=== PATIENT | male | born 1995 | race Caucasian/White ===

== ENCOUNTER 2017-02-16 23:54 | Emergency (ER) | payer OTHER ==
[2017-02-17 00:04] VITALS: BP 124/101
[2017-02-17] MEDS ORDERED: Aspirin 81 MG Tab.Chew PO ONE (00:28)
--- NOTE | 2017-02-17 00:47 | EDM.PDOC ---
ED HPI GENERAL MEDICAL PROBLEM - General Chief Complaint: Chest Pain Stated Complaint: CHEST PAIN Time Seen by Provider: 02/17/17 00:18 Source of Information: Reports: Patient History Limitations: Reports: No Limitations - History of Present Illness INITIAL COMMENTS - FREE TEXT/NARRATIVE: The patient presents with left sided chest pain that started this morning at 7am. The pain is described as pressure. It radiated to the right chest earlier. He has some shortness of breath with it. The pain is made worse by taking a deep breath. He denies fever, chills, cough, abdominal pain, nausea or vomiting. This has never happened before. He does not smoke or do drugs. Onset: Gradual Duration: Hour(s): (7am) Location: Reports: Chest Quality: Reports: Pressure Severity: Moderate Improves with: Reports: None Worsens with: Reports: Breathing Associated Symptoms: Reports: Chest Pain, Shortness of Breath. Denies: Confusion, Cough, Diaphoresis, Fever/Chills, Nausea/Vomiting Left Chest Pain Score (Numeric/FACES): 8 - Related Data Allergies Allergy/AdvReac Type Severity Reaction Status Date / Time No Known Allergies Allergy Verified 02/16/17 23:59 Home Meds: Home Meds Naproxen Sodium [Midol] 440 mg PO ONCALL PRN 02/17/17 [History] Past Medical History - Past Health History Medical/Surgical History: Denies Medical/Surgical History HEENT History: Reports: None Cardiovascular History: Reports: None Respiratory History: Reports: None Gastrointestinal History: Reports: None Genitourinary History: Reports: None Musculoskeletal History: Reports: None Neurological History: Reports: None Psychiatric History: Reports: None Endocrine/Metabolic History: Reports: Obesity/BMI 30+ Social & Family History - Family History Family Medical History: Noncontributory - Tobacco Use Smoking Status *Q: Never Smoker Second Hand Smoke Exposure: Yes - Recreational Drug Use Recreational Drug Use: No - Living Situation & Occupation Living situation: Reports: Single ED ROS GENERAL - Review of Systems Review Of Systems: See Below Constitutional: Reports: No Symptoms HEENT: Reports: No Symptoms Respiratory: Reports: Shortness of Breath Cardiovascular: Reports: Chest Pain Endocrine: Reports: No Symptoms GI/Abdominal: Reports: No Symptoms : Reports: No Symptoms Musculoskeletal: Reports: No Symptoms Skin: Reports: No Symptoms Neurological: Reports: No Symptoms ED EXAM, GENERAL - Physical Exam Exam: See Below Exam Limited By: No Limitations General Appearance: Alert, No Apparent Distress Ears: Normal External Exam Nose: Normal Inspection Head: Atraumatic, Normocephalic Neck: Normal Inspection Respiratory/Chest: No Respiratory Distress, Lungs Clear, Normal Breath Sounds Cardiovascular: Regular Rate, Rhythm, No Edema, No Murmur Peripheral Pulses: 0: Popliteal (R) GI/Abdominal: Soft, Non-Tender, No Organomegaly, No Mass Back Exam: Normal Inspection Extremities: Normal Inspection EKG INTERPRETATION EKG Date: 02/17/17 Time: 00:40 Rhythm: NSR Rate (Beats/Min): 77 [place]: Normal P-Wave: Present QRS: Normal ST-T: Normal QT: Normal Course - Vital Signs Last Recorded V/S: Last Vital Signs Temp 96.5 F 02/17/17 00:01 Pulse 81 02/17/17 00:01 Resp 16 02/17/17 00:01 BP 124/101 H 02/17/17 00:01 Pulse Ox 95 02/17/17 00:01 - Orders/Labs/Meds Orders: Active Orders 24 hr Category Date Time Status EKG Documentation Completion [RC] ASDIRECTED Care 02/17/17 00:27 Active CXR [Chest 2V] [CR] Stat Exams 02/17/17 00:27 Taken EKG 12 Lead [EK] Stat Ther 02/17/17 00:27 Ordered Meds: Medications Discontinued Medications Generic Name Dose Route Start Last Admin Trade Name Freq PRN Reason Stop Dose Admin Aspirin 324 mg 02/17/17 00:28 02/17/17 00:35 Aspirin PO 02/17/17 00:29 324 mg ONETIME ONE Administration - Re-Assessments/Exams Free Text/Narrative Re-Assessment/Exam: 02/17/17 00:46 I ordered an EKG and a CXR. His EKG shows a NSR with no acute changes. I am waiting for the CXR. 02/17/17 01:15 His CXR looks good. It appears he has pleurisy. I will discharge him home. Departure - Departure Time of Disposition: 01:20 Disposition: Home, Self-Care 01 Condition: Good Clinical Impression: Pleurisy Referrals: Suzie Sewell PA-C [Physician [employer]] - 1 Week Forms: ED Department Discharge, ED Return to Work/School Form Additional Instructions: Take motrin or aleve for the pain. Rest today. Please return if you are worse. - My Orders Last 24 Hours: My Active Orders 02/17/17 00:27 EKG Documentation Completion [RC] ASDIRECTED CXR [Chest 2V] [CR] Stat EKG 12 Lead [EK] Stat - Assessment/Plan Last 24 Hours: My Active Orders 02/17/17 00:27 EKG Documentation Completion [RC] ASDIRECTED CXR [Chest 2V] [CR] Stat EKG 12 Lead [EK] Stat
--- NOTE | 2017-02-17 12:52 | CR ---
Chest: Two views of the chest were obtained. Comparison: No prior study. Heart size and mediastinum are within normal limits. Lungs are clear. Bony structures are unremarkable. Impression: 1. Nothing acute is identified on two-view chest x-ray. Diagnostic code #1
== END 2017-02-17 01:31 | disposition home or self-care (01) ==
LOC: JD.ED 23:54
DX: R09.1 Pleurisy (principal)
CPT/HCPCS: 71020; 93005; 99285; A9270; 99284

== ENCOUNTER 2017-07-05 01:40 | Emergency (ER) | payer BC, OTHER ==
[2017-07-05 01:48] VITALS: BP 123/85
--- NOTE | 2017-07-05 02:05 | EDM.PDOC ---
ED HPI GENERAL MEDICAL PROBLEM - General Chief Complaint: Fever Stated Complaint: COUGH FEVER CONGESTION Time Seen by Provider: 07/05/17 01:50 Source of Information: Reports: Patient, Significant Other (Girlfriend) History Limitations: Reports: No Limitations - History of Present Illness INITIAL COMMENTS - FREE TEXT/NARRATIVE: The patient states that he developed fever, with a Tmax of 103.4, as measured by an electronic oral thermometer earlier tonight, a cough productive of an unknown color of phlegm, nausea with emesis, rhinorrhea, chills, bilateral lower extremity achiness, and a sore throat, on 07/02/2017. He has been taking Tylenol, DayQuil, and NyQuil, but is not sure if these have helped. He has not been seen in the clinic. Here in the ED, the patient is found to have a temperature of 102.2. The patient did not receive an influenza vaccine this season. The patient does not have a PCP. - Related Data Allergies Allergy/AdvReac Type Severity Reaction Status Date / Time No Known Allergies Allergy Verified 07/05/17 01:48 Home Meds: Home Meds . [No Known Home Meds] 07/05/17 [History] Past Medical History Endocrine/Metabolic History: Reports: Obesity/BMI 30+ - Past Surgical History GI Surgical History: Reports: Appendectomy Social & Family History - Family History Family Medical History: Noncontributory - Tobacco Use Smoking Status *Q: Never Smoker Second Hand Smoke Exposure: Yes - Caffeine Use Caffeine Use: Reports: None - Alcohol Use Alcohol Use History: No - Recreational Drug Use Recreational Drug Use: No - Living Situation & Occupation Living situation: Reports: Single, with Family Occupation: Employed ([employer]) ED ROS GENERAL - Review of Systems Review Of Systems: ROS reveals no pertinent complaints other than HPI. ED EXAM, GENERAL - Physical Exam Exam: See Below Exam Limited By: No Limitations General Appearance: Alert, WD/WN, No Apparent Distress Eye Exam: Bilateral Eye: Normal Inspection Ears: Normal External Exam, Normal Canal, Hearing Grossly Normal, Normal TMs Nose: Normal Inspection, Normal Mucosa, No Blood Throat/Mouth: Normal Inspection, Normal Lips, Normal Teeth, Normal Gums, Normal Oropharynx, Normal Voice, No Airway Compromise Head: Atraumatic, Normocephalic Neck: Normal Inspection, Supple, Non-Tender, Full Range of Motion. No: Lymphadenopathy (L), Lymphadenopathy (R) Respiratory/Chest: No Respiratory Distress, Lungs Clear, Normal Breath Sounds, No Accessory Muscle Use Cardiovascular: Normal Peripheral Pulses, Regular Rate, Rhythm, No Gallop, No JVD, No Murmur, No Rub Peripheral Pulses: 4+: Radial (L), Radial (R) GI/Abdominal: Normal Bowel Sounds, Soft, Non-Tender, No Organomegaly, No Distention, No Abnormal Bruit, No Mass, Other (Obese) (Male) Exam: Deferred Rectal (Males) Exam: Deferred Back Exam: Normal Inspection, Full Range of Motion, NT Extremities: Normal Inspection, Normal Range of Motion, No Pedal Edema, Normal Capillary Refill Neurological: Alert, Oriented, Normal Cognition, No Motor/Sensory Deficits Psychiatric: Normal Affect Skin Exam: Warm, Dry, Intact, Normal Color, No Rash Course - Vital Signs Last Recorded V/S: Last Vital Signs Temp 39.0 C H 07/05/17 01:45 Pulse 112 H 07/05/17 01:45 Resp 17 07/05/17 01:45 BP 123/85 07/05/17 01:45 Pulse Ox 97 07/05/17 01:45 - Orders/Labs/Meds Orders: Active Orders 24 hr Category Date Time Status Chest 2V [CR] Stat Exams 07/05/17 01:59 Ordered CBC WITH MANUAL DIFF [HEME] Stat Lab 07/05/17 02:08 Results CULTURE STREP A CONFIRMATION [RM] Stat Lab 07/05/17 01:50 Results STREP SCRN A RAPID W CULT CONF [RM] Stat Lab 07/05/17 01:50 Results Labs: Laboratory Tests 07/05/17 07/05/17 Range/Units 02:08 02:08 WBC 3.95 L (4.23-9.07) K/mm3 RBC 5.36 (4.63-6.08) M/mm3 Hgb 15.2 (13.7-17.5) gm/L Hct 44.3 (40.1-51.0) % MCV 82.6 (79.0-92.2) fl MCH 28.4 (25.7-32.2) pg MCHC 34.3 (32.2-35.5) g/dl RDW Std Deviation 40.7 (35.1-43.9) fL Plt Count 158 L (163-337) K/mm3 MPV 9.2 L (9.4-12.3) fl Sodium 138 (136-145) mEq/L Potassium 3.8 (3.5-5.1) mEq/L Chloride 102 (98-107) mEq/L Carbon Dioxide 27 (21-32) mEq/L Anion Gap 12.8 (5-15) BUN 16 (7-18) mg/dL Creatinine 1.1 (0.7-1.3) mg/dL Est Cr Clr Drug Dosing 97.47 mL/min Estimated GFR (MDRD) > 60 (>60) mL/min BUN/Creatinine Ratio 14.5 (14-18) Glucose 102 (74-106) mg/dL Calcium 8.9 (8.5-10.1) mg/dL Total Bilirubin 0.5 (0.2-1.0) mg/dL AST 18 (15-37) U/L ALT 33 (16-63) U/L Alkaline Phosphatase 65 (46-116) U/L Total Protein 8.2 (6.4-8.2) g/dl Albumin 3.7 (3.4-5.0) g/dl Globulin 4.5 gm/dL Albumin/Globulin Ratio 0.8 L (1-2) - Re-Assessments/Exams Free Text/Narrative Re-Assessment/Exam: 07/05/17 02:18 The patient's influenza swab has returned positive for Influenza A, however, the patient's symptoms began nearly 4 days ago, well outside the therapeutic window for Tamiflu. His rapid strep test has returned negative. Two-view chest radiograph appears to be grossly normal. Cardiac silhouette is within normal limits. No pulmonary vascular congestion. No pleural effusions. No focal infiltrate. No pneumothorax. Formal read per the Radiologist pending. 07/05/17 02:59 Test results discussed with the patient and his girlfriend. As above, the patient is outside the window of treatment with Tamiflu. I'm recommending he take [id number] Tylenol or ibuprofen as needed for discomfort, and that he stay well hydrated. The patient would like a note for work. I will provide 1 to cover him this weekend, then have him follow-up with Dr. West this coming Friday. Departure - Departure Time of Disposition: 03:00 Disposition: Home, Self-Care 01 Condition: Fair Clinical Impression: Influenza A - Discharge Information Referrals: PCP,None [Primary Care Provider] - Louie West [Physician] - Forms: ED Department Discharge, ED Return to Work/School Form Additional Instructions: You were seen in the emergency room for fever, chills, cough, nausea, vomiting, runny nose, lower body aches, and sore throat. Workup in the ER included blood work, an influenza swab, a rapid strep test, and a chest x-ray. Your workup found that you are positive for Influenza A. Unfortunately, you are outside the window of time where treatment with Tamiflu would be effective. Take [id number] Tylenol or ibuprofen as needed for discomfort from fever. Ibuprofen will probably work better and last longer, but may cause stomach upset. We do not recommend you take [id number] cough or cold remedies - they do not work, but do have side effects. Stay adequately hydrated. A note has been written to excuse you from work over this weekend. If you need time off beyond that, please follow-up with Dr. West in the clinic this coming 07/07/2017. If any other problems, please do not hesitate to return to the ER. - My Orders Last 24 Hours: My Active Orders 07/05/17 01:50 CULTURE STREP A CONFIRMATION [RM] Stat STREP SCRN A RAPID W CULT CONF [RM] Stat 07/05/17 01:59 Chest 2V [CR] Stat 07/05/17 02:08 CBC WITH MANUAL DIFF [HEME] Stat - Assessment/Plan Last 24 Hours: My Active Orders 07/05/17 01:50 CULTURE STREP A CONFIRMATION [RM] Stat STREP SCRN A RAPID W CULT CONF [RM] Stat 07/05/17 01:59 Chest 2V [CR] Stat 07/05/17 02:08 CBC WITH MANUAL DIFF [HEME] Stat
--- NOTE | 2017-07-05 15:38 | CR ---
Chest: Two views of the chest were obtained. Comparison: Prior chest x-ray of 02/17/17. Heart size and mediastinum are normal. Lungs are clear. Bony structures are unremarkable. Impression: 1. Nothing acute is identified on two-view chest x-ray. Diagnostic code #1
== END 2017-07-05 03:12 | disposition home or self-care (01) ==
LOC: JD.ED 01:40
DX: J10.1 Influenza due to other identified influenza virus with other respiratory manifestations (principal); Z77.22 Contact with and (suspected) exposure to environmental tobacco smoke (acute) (chronic)
CPT/HCPCS: 36415; 71046; 71046-26; 80053; 85025; 87081; 87430; 87804; 99283